=== PATIENT | male | born 1990 | race Caucasian/White ===

== ENCOUNTER 2021-05-06 12:30 | Outpatient (RCR) | payer BC, SELFPAY ==
--- NOTE | 2021-03-30 18:21 | HP.PTEVAL ---
Patient's Visit Information ASPEN HODGE is a 30 year old M referred to Physical Therapy by DAVEY Pablo with a diagnosis of SPRAIN OF LIGAMENTS OF LUMBAR SPINE. Date of Evaluation: 03/30/21 Physical Therapist: Crystal Gill PT, Cert MDT - Visit Plan Frequency: 2-3x /Week Duration: 4-6 Weeks Plan: US, IF E-STIM WITH MH, POSTURE CORRECTION/STRENGTHENING, INSTRUCTION IN APPROPRIATE BODY MECHANICS AND ACTIVITY MODIFICATIONS. DLS STARTING WITH A NEUTRAL SPINE PROGRESSING ROM TOLERATED. HARRY LE ROM, STRETCHING AND STRENGTHENING. WORK SIMULATION ACTIVITIES. HEP INSTRUCTION. 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 PATIENT REPORTS HE WAS MOVED TO RECEIVING AFTER HIS BACK STARTED HURTING AND THERE ISN'T MUCH HEAVY WORK THERE. NO OFF WORK FOR THIS. Disability: NO. Present symptoms: HARRY LOW BACK. CURRENTLY NO LE SX'S. Present since: APPROX MAR 07 2021. Pain Scale: WORST 2/10, LEAST 0/10. Currently: 0/10. Commenced as a result of: PATIENT RELATES THE ONSET OF HIS PAIN TO BENDING CONSTANTLY AT WORK AND BEING SHORT HANDED AT WORK. ALSO WAS OUTSIDE SHOVELING. Symptoms at onset: LOW BACK PAIN. Worse: BENDING, TWISTING. BENDING AND TWISTING WITH HEAVY WEIGHT. Better: HEATING PAD, MUSCLE RELAXER, OTC TYLONOL. Disturbed sleep: NO. Previous history/Previous treatment: BACHACHES SELF TREATED IN THE PAST THAT RESOLVED WITH TIME. NO BACK SURGERY. NO BACK INJECTIONS. NO PHYSICAL THERPAY. AND NO PAST CHIROPRACTIC. TREATMENT THIS EPISODE: ONE VISIT TO THE NOW [facility] 03/21/21. Coughing/sneezing/straining: NEGATIVE. Gait: NORMAL. Difficulty initiating urination: NO. NO BOWEL OR BLADDER DYSFUNCTION. Accidents: NO. Unexplained weight loss: NO. Imaging: NO. PMH/Recent major surgery: UNREMARKABLE. OTHER: PATIENT REPORTS THAT HIS PAIN STARTED OUT INTERMITTENT AND THEN BECAME CONSTANT SO WENT TO THE NOW CLINIC. STARTED GETTING BETTER WHEN MOVED TO DIFFERENT JOB AT WORK LAST WEEK. PATIENT VAGUELY RECALLS MAYBE FEELING SOME TINGLING IN HIS LEGS AT SOME POINT BUT HE ISN'T SURE WHERE. - Objective Sitting/Standing Posture: POOR. Lordosis: REDUCED. Lateral shift: NO. Relevant shift: N/A. Active Correction of posture: NE. PATIENT ONLY ABLE TO PARTIALLY CORRECT. Other Observations: INDEP GAIT AND TRANSFERS WITH NO OBVIOUS DEVIATIONS. Motor deficit: HARRY LE'S 5/5. Sensory deficit: HARRY LE LIGHT TOUCH SENSATION INTACT AND SYMMETRICAL. ROM deficit: TIGHT HARRY LE HIP FLEXORS, HS'S AND GASTROC SOLEUS COMPLEX'S. Reflexes: 2/3 HARRY LE'S. Dural Signs: NEGATIVE HARRY LE'S. Lumbar mvmt loss: flex - MIN. ext - MOD. R SG - MIN. L SG - MIN. PATIENT DENIES PAIN WITH LUMBAR ROM TESTING ALL PLANES IT JUST FEELS A LITTLE TIGHT. Core strength: FAIR. Palpation: PATIENT IS NOT TENDER WITH PALPATION OF THE LOWER THORACIC OR LUMBAR REGIONS TODAY BUT INCREASED MUSCLE TONE OF HARRY PARASPINALS. TREATMENT: NEUROMUSCULAR REEDUCATION - RETRAINING OF MVMT AND POSTURE FOR SITTING, LYING AND STANDING ACTIVITIES. INTRO TO INSTRUCTION IN PROPER BODY MECHANICS FOR WORK AND HOME SPECIFIC ACTIVITIES. REINFORCEMENT NEEDED. IT WAS DIFFICULT FOR PATIENT TO USE PROPER TECHNIQUE FOR POSTURE AND BODY MECHANICS EVEN WITH CUEING. - Balance/Special Test Scores Oswestry Low Back Score: 10 - Goals Goal 1:: DECREASE C/O LOW BACK AND LE SX'S. Goal Time Frame: 4-6 Weeks Goal 2:: IMPROVE LIFTING, SOCIAL LIFE AND WORK/HOMEMAKING FUNCTION Goal Time Frame: 4-6 Weeks Goal 3:: INSTRUCT IN PROPHYLAXIS Goal Time Frame: 4-6 Weeks - Anticipated Interventions Patient/Client Instruction: Educate patient on: Condition, Plan of Care, Risk Factors For the Purpose of:: To improve decision making Therapeutic Exercise to Include: Strength training, Body mechanics, Postural training, Flexibilty training, Neuromotor development, Dynamic Lumbar Stabilization Comment: POOL IS NOT COVERED For the Purpose of:: To decrease pain, To increase ROM, To improve muscle performance and motor function, To increase tolerance to activity/condition/position, To improve ability of physical actions for home/community/work/leisure TENS: Yes IF ES: Yes Cryotherapy (ice pack, ice massage): Yes Thermo therapy (hot pack): Yes Ultrasound (thermal/non thermal): Yes For the Purpose of:: To decrease pain, To improve nutrient delivery to tissue Thank you for the opportunity to evaluate your patient. For Medicare and Medicare HMO plans, please review the plan of care and approve it. It will need to be FAXED BACK to us at [phone] for Medicare purposes. For Medicare only, by signing this I certify the plan of care. Please let me know if there are questions or concerns regarding this plan of care. Physician Signature: Date:
--- NOTE | 2021-05-06 12:56 | HP.PTDCSUM_ITS ---
It has been my pleasure to treat ASPEN HODGE referred by ROCIO PabloC, with the diagnosis of SPRAIN OF LIGAMENTS OF LUMBAR SPINE for a total of 9 visit(s). Discharge Date: Please see the following information for a summary of their discharge status. Subjective: PATIENT REPRORTS HE FEELS MORE LOSSED UP INSTEAD OF STIFF AND ACHY. ALL SHARP PAIN HAS GONE AWAY. 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 BEING CAREFUL. REPORTS OCCASSIONAL MILD LOW BACK ACHE. bilat LB Pain Intensity (Out of 10): 0 % Improvement: 98 Objective/Function: PATIENT WAS SEEN TODAY FOR RE-ASSESSMENT OF PROGRESS TOWARD THE SET PT GOALS AND THE NEED FOR FURTHER PHYSICAL THERAPY VS READINESS FOR DISCHARGE. UPON EXAM TODAY: ALL GOALS HAVE BEEN MET. Dural Signs: NEGATIVE HARRY LE'S. Lumbar mvmt loss: flex - MIN. ext - MOD. R SG - MIN. L SG - MIN. PATIENT DENIES PAIN WITH LUMBAR ROM TESTING ALL PLANES IT FEELS NORMAL. Core strength: GOOD. Palpation: PATIENT IS NOT TENDER WITH PALPATION OF THE LOWER THORACIC OR LUMBAR REGIONS TODAY BUT INCREASED MUSCLE TONE OF HARRY PARASPINALS. Goal 1:: DECREASE C/O LOW BACK AND LE SX'S. Goal Progress: Goal Met Goal 2:: IMPROVE LIFTING, SOCIAL LIFE AND WORK/HOMEMAKING FUNCTION Goal Progress: Goal Met Goal 3:: INSTRUCT IN PROPHYLAXIS Goal Progress: Goal Met Plan: D/C. PATIENT AGREEABLE. If there are questions or concerns regarding this patient's physical therapy, please feel free to call me at [phone]. Thank you for the referral of this patient. Sincerely, Crystal Gill, PT, Cert MDT Balance/Gait/Functional tests - Balance/Special Test Scores Oswestry Low Back Score: 0
== END 2021-05-06 14:10 | disposition home or self-care (01) ==
LOC: PT 12:30
PROVIDERS: Visit Provider Nurse Practitioner Family
DX: S33.5XXD Sprain of ligaments of lumbar spine, subsequent encounter (principal)
CPT/HCPCS: 97014; 97110; 97112; 97161; 97164; 97530; G0283

== ENCOUNTER 2022-03-04 13:00 | Outpatient (RCR) | payer BC, SELFPAY ==
--- NOTE | 2022-02-03 09:16 | HP.PTEVAL ---
Patient's Visit Information ASPEN HODGE is a 31 year old M referred to Physical Therapy by RICK Quan with a diagnosis of LBP. Date of Evaluation: 02/02/22 Physical Therapist: Jeff Harrington, PT, ATC - Visit Plan Frequency: 2-3x /Week Duration: 4 Weeks Plan: Postural edu, B LE strengthening, REIL, core stab ex's, and HEP - Subjective Pt reports he has had LBP for a few weeks now. Pt reports he works at [employer]. Pt reports he worked for a while and was laid off. 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 Pt reports this may be wheat has caused his pain. Pt reports the constant lifting and carrying has caused most of his pain. Pt reports sleep difficulty at time secondary to pain. Pt reports intermittent L LE radiculopathy that extends to his L knee. Pt reports muscle relaxers will help to alleviate his pain. Pt also notes if he sits and rests for a bit, his pain will decrease. 2/10 pain while at rest, 10/10 pain at worst. - Pain LBP Pain Intensity (Out of 10): 2 Pain Intensity Range: 10 - Objective Neuro: B LE sensation is WNL to light touch. B patellar reflex= 2/3. MMT: B LE's are grossly 4-/5 throughout. L/S ROM: Pt is minimally limited with flexion secondary to HS tightness. Ext is moderately limited. SB is equal bilaterally. Repeated movements: RFIS 10x3 NE, NORMA 10x3 better - Balance/Special Test Scores Oswestry Low Back Score: 24 - Goals Goal 1:: Decrease LBP x 50% to aid with sleep Goal Time Frame: 4-6 Weeks Goal 2:: Increase L/S ROM x 1 grade to aid with decreasing pain in LB Goal Time Frame: 4-6 Weeks Goal 3:: Decrease the frequency and intensity of R LE radiculopathy x 50% to aid with work tolerance Goal Time Frame: 4-6 Weeks Goal 4:: I with HEP - Rehabilitation Potential Physical Therapy Diagnosis: Pt has LBP, B LE weakness, and limited spine ROM secondary to L/S disc derrangement Rehabilitation Potential: Excellent - Anticipated Interventions Patient/Client Instruction: Educate patient on: Condition, Plan of Care For the Purpose of:: To improve self management Therapeutic Exercise to Include: Strength training, Endurance training, Body mechanics, Postural training, Dynamic Lumbar Stabilization, Ronna Exercises For the Purpose of:: To decrease pain, To increase ROM, To improve muscle performance and motor function Cryotherapy (ice pack, ice massage): Yes For the Purpose of:: To decrease pain Thank you for the opportunity to evaluate your patient. For Medicare and Medicare HMO plans, please review the plan of care and approve it. It will need to be FAXED BACK to us at [phone] for Medicare purposes. For Medicare only, by signing this I certify the plan of care. Please let me know if there are questions or concerns regarding this plan of care. Physician Signature: Date:
== END 2022-03-04 19:00 | disposition home or self-care (01) ==
LOC: PT 13:00
PROVIDERS: Referring Provider Physician Assistant Surgical; Visit Provider Physician Assistant Surgical
DX: S33.5XXD Sprain of ligaments of lumbar spine, subsequent encounter (principal)
CPT/HCPCS: 97110; 97161